=== PATIENT | male | born 1950 | race Caucasian/White ===

== ENCOUNTER 2019-10-16 05:27 | Day surgery (SDC) | payer MEDICARE, BC ==
[2019-10-16] VITALS (7 sets, daily range): BP systolic 141–167; BP diastolic 65–78; PULSE 44–59; TEMP 97.9–98.6
[~2019-10-16] VITALS: Ht 177.8 cm; Wt 91.4 kg
[2019-10-16] MEDS ORDERED: ADVIL200 MG PO (05:58)
[2019-10-16] MEDS ORDERED: ZYRTEC5 MG PO (05:58)
[2019-10-16] MEDS ORDERED: MOTRIN 600600 MG/TAB PO (09:31)
[2019-10-16] MEDS ORDERED: NORCO 325 MG-51 TAB PO (09:31)
--- NOTE | 2019-10-16 09:55 | NUR ---
Patient returns to room 8 per cart from PACU accompanied by Urszula JOHNSON and is awake and alert. IV fluids infusing. Incisions x3 on abdomen covered with carlin set dry. Denies pain or nausea. Taking sips of water. Siderails up x2 and call light in reach.
--- NOTE | 2019-10-16 10:10 | NUR ---
Drinking water and Sprite. Continues to deny pain or nausea.
--- NOTE | 2019-10-16 10:25 | NUR ---
Resting when not disturbed. Room air sats 98%.
--- NOTE | 2019-10-16 10:40 | NUR ---
Eating toast and sipping on coffee. Continues to deny pain or nausea.
--- NOTE | 2019-10-16 10:55 | NUR ---
Tolerated toast and coffee. Continues to deny pain or nausea.
--- NOTE | 2019-10-16 11:15 | NUR ---
Patient assisted up to the bathroom and voids. Tolerates activity well. Denies pain and nausea with movement. Able to void and returns to room. INT discontinued and site is free of redness.
--- NOTE | 2019-10-16 11:30 | NUR ---
Patient dresses self and continues to deny need for pain medication.
--- NOTE | 2019-10-16 11:30 | NUR ---
Dismissal instructions given and provided scripts for Chad and Jonathan. Provided follow up appointment date and time.
--- NOTE | 2019-10-16 11:34 | NUR ---
Patient dismissed to home driven by son and taken to the front door per wheelchair and assisted into vehicle by this RN with instructions in hand.
== END 2019-10-16 11:35 | disposition home or self-care (01) ==
LOC: SDCO 05:27 → SURG 07:30 → EDSTATUS 07:30 → SDCO 07:30
DX: K40.90 Unilateral inguinal hernia, without obstruction or gangrene, not specified as recurrent (principal); D17.6 Benign lipomatous neoplasm of spermatic cord; Z80.42 Family history of malignant neoplasm of prostate; Z11.59 Encounter for screening for other viral diseases
CPT/HCPCS: C1781; J0690; J1100; J1885; J2405; J2704; J2710; J3010; J7120